=== PATIENT | male | born 1970 | race Caucasian/White ===

== ENCOUNTER 2018-01-16 08:54 | Emergency (ER) | payer OTHER ==
[2018-01-16 09:02] VITALS: BP 115/78; PULSE 65; TEMP 99.2; BMI 25.7
--- NOTE | 2018-01-16 09:11 | PDOC ---
History of Present Illness - General Chief Complaint: Toothache Stated Complaint: TOOTH PAIN Time Seen by Provider: 01/16/18 09:08 History Source: Patient Exam Limitations: No Limitations - History of Present Illness Timing/Duration: unsure Severity: moderate, severe Associated Symptoms: reports: denies symptoms, fever/chills Past History - Travel Traveled outside of the country in the last 30 days: No Close contact w/someone who was outside of country & ill: No - Past Medical History Allergies/Adverse Reactions: Allergies Allergy/AdvReac Type Severity Reaction Status Date / Time aspirin Allergy Severe Swelling Verified 01/16/18 08:58 Home Medications: Ambulatory Orders Amoxicillin - [Amoxicillin 500mg Capsule -] 500 mg PO TID #21 capsule 01/16/18 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 No: See HPI Musculoskeletal: No: Symptoms Reported All Other Systems: Reviewed and Negative *Physical Exam - Vital Signs Last Vital Signs Temp Pulse Resp BP Pulse Ox 99.2 F 65 18 115/78 99 01/16/18 08:57 01/16/18 08:57 01/16/18 08:57 01/16/18 08:57 01/16/18 08:57 - Physical Exam General Appearance: Yes: Nourished, Appropriately Dressed, Apparent Distress, Mild Distress, Moderate Distress HEENT: positive: SRAVANI, Normal ENT Inspection, TMs Normal, Pharynx Normal, Nasal Congestion, Rhinorrhea, Other (Multiple teeth eroded down to gumline, right upper first molar with noted bone exposed, no abscess, swelling, or erythema noted to gingival surfaces. 3 other areas of same type of erosion noted. No erythema to throat) Neck: positive: Tender, Supple, Lymphadenopathy (R), Lymphadenopathy (L) Respiratory/Chest: positive: Lungs Clear, Normal Breath Sounds Gastrointestinal/Abdominal: positive: Tender, Soft Extremity: positive: Normal Inspection, Normal Range of Motion Integumentary: positive: Normal Color, Dry, Warm, Pale Neurologic: positive: apartment leasing specialist II-XII NML intact, Fully Oriented, Alert, Normal Mood/ Affect, Normal Response, Motor Strength 5/5 Moderate Sedation - Procedure Monitoring Vital Signs: Procedure Monitoring Vital Signs Temperature 99.2 F 01/16/18 08:57 Pulse Rate 65 01/16/18 08:57 Respiratory Rate 18 01/16/18 08:57 Blood Pressure 115/78 01/16/18 08:57 O2 Sat by Pulse Oximetry (%) 99 01/16/18 08:57 *DC/Admit/Observation/Transfer Diagnosis at time of Disposition: Toothache - Discharge Dispostion Disposition: HOME Condition at time of disposition: Stable Decision to Admit order: No - Referrals - Patient Instructions Printed Discharge Instructions: DI for Dental Pain Additional Instructions: Rest, drink lots of fluids: Teas, water, soups Saltwater gargles/ keep mouth clean and rinse after each meal May use wet teabag for pain relief to area Avoid hard chewing foods, stick to ice cream, Jell-O, yogurt etc. Tylenol for fever and pain Complete all medication as prescribed Seek dental appointment as soon as possible for evaluation of dental injury/pain Followup with private physician in one to 2 days as needed Return to emergency department for worsened symptoms, fevers, swelling to face or worsened pain You may try : [facility] has dental clinic associated with hospital OR [facility] [address] [place] [address] [phone] - Post Discharge Activity Forms/Work/School Notes: Back to Work
[2018-01-16] MEDS ORDERED: AMOXICILLIN 250 MG CAPSULE PO ONE (09:39)
[2018-01-16] MEDS ORDERED: AMOXICILLIN 250 MG CAPSULE ONE (09:40)
[2018-01-16] MEDS ORDERED: ACETAMINOPHEN 500 MG TABLET (FP) ONE (09:40)
[2018-01-16] MEDS ORDERED: ACETAMINOPHEN 500 MG TABLET (FP) PO ONE (09:40)
== END 2018-01-16 09:48 | disposition home or self-care (01) ==
LOC: JERFT 08:54
DX: K08.89 Other specified disorders of teeth and supporting structures (principal)
CPT/HCPCS: 99281-25